=== PATIENT | male | born 1965 | race Caucasian/White ===

== ENCOUNTER 2022-08-17 07:55 | Outpatient (CLI) | payer BC, SELFPAY ==
[2022-08-17 14:16] LABS: Cholesterol* 227 mg/dL (90-199)
[2022-08-17 14:17] LABS: HDL Cholesterol* 40 mg/dL (>=40); LDL Cholesterol Calculated 117 mg/dL (<100); Triglycerides* 349 mg/dL (40-149)
== END 2022-08-17 07:56 | disposition home or self-care (01) ==
LOC: LKVREF 07:56
PROVIDERS: PCP Family Medicine; Visit Provider Family Medicine
DX: Z00.00 Encounter for general adult medical examination without abnormal findings (principal); E11.9 Type 2 diabetes mellitus without complications; Z13.6 Encounter for screening for cardiovascular disorders
CPT/HCPCS: 80061

== ENCOUNTER 2022-12-30 15:50 | Outpatient (CLI) | payer OTHER, SELFPAY | END 2022-12-30 15:51 | disposition home or self-care (01) | PROVIDERS: PCP Family Medicine; Visit Provider Family Medicine | DX: Z00.00 Encounter for general adult medical examination without abnormal findings (principal); Z01.818 Encounter for other preprocedural examination; E11.9 Type 2 diabetes mellitus without complications; R10.9 Unspecified abdominal pain | CPT/HCPCS: 80053 ==

== ENCOUNTER 2023-01-07 15:52 | Outpatient (CLI) | payer OTHER, SELFPAY ==
--- NOTE | 2023-01-07 16:00 | CRLHL7_ITS ---
For Patients: As a result of the Century Cures Act, medical imaging exams and procedure reports are released immediately into your electronic medical record. You may view this report before your referring provider. If you have questions, please contact your health care provider. Indication: abdominal pain, distension, ? mass LUQ Technique: Noncontrast CT abdomen and pelvis Please note that all CT scans at this facility use dose modulation, iterative reconstruction, and/or weight-based dosing when appropriate to reduce radiation dose to as low as reasonably achievable. Comparison: None Findings: 3.9 millimeter pulmonary nodule right middle lobe, series 6, image 2. No pleural effusion. No free air within the abdomen. Mild hepatic steatosis. Gallbladder is incompletely distended. No biliary obstruction. Spleen normal. Normal pancreas. Mildly prominent retroperitoneal lymph nodes are present in the upper abdomen measuring up to 1 cm. Atherosclerotic disease within the aorta without aneurysm. Adrenal glands, kidneys and ureters are normal. No bowel obstruction or free fluid. No abscess. Prostate calcifications. Normal appendix. No diverticulitis. No abdominal wall hernia. Bladder normal. No compression fracture. Degenerative changes of both hips. Impression: Mildly prominent upper abdominal retroperitoneal lymph nodes, nonspecific. Mild hepatic steatosis. 3.9 millimeter right middle lobe pulmonary nodule. Optional follow-up chest CT in 1 year suggested. No mass in the left upper quadrant. Please note that all CT scans at this facility use dose modulation, iterative reconstruction, and/or weight-based dosing when appropriate to reduce radiation dose to as low as reasonably achievable. Dictated by João Wayne MD @ 01/10/2023 11:37:59 AM (Electronically Signed)
== END 2023-01-07 15:53 | disposition home or self-care (01) ==
PROVIDERS: PCP Family Medicine; Visit Provider Family Medicine
DX: R10.9 Unspecified abdominal pain (principal); K76.0 Fatty (change of) liver, not elsewhere classified; R91.1 Solitary pulmonary nodule
CPT/HCPCS: 74176

== ENCOUNTER 2023-10-31 08:30 | Outpatient (CLI) | payer OTHER, SELFPAY | END 2023-10-31 08:31 | disposition home or self-care (01) | LOC: NFLDREF 11-01 07:16 | PROVIDERS: PCP Family Medicine; Referring Provider Family Medicine; Visit Provider Family Medicine | DX: E11.9 Type 2 diabetes mellitus without complications (principal); Z13.6 Encounter for screening for cardiovascular disorders; Z12.5 Encounter for screening for malignant neoplasm of prostate | CPT/HCPCS: 80048; 80061; 82043; 82570; G0103 ==

== ENCOUNTER 2025-03-05 07:56 | Outpatient (CLI) | payer OTHER, SELFPAY | END 2025-03-05 07:57 | disposition home or self-care (01) | LOC: NFLDREF 03-12 07:12 | PROVIDERS: PCP Family Medicine; Referring Provider Family Medicine; Visit Provider Family Medicine | DX: E11.9 Type 2 diabetes mellitus without complications (principal); D72.829 Elevated white blood cell count, unspecified; Z79.84 Long term (current) use of oral hypoglycemic drugs | CPT/HCPCS: 80053; 80061; 82043; 82570 ==

== ENCOUNTER 2025-03-12 08:03 | Outpatient (CLI) | payer OTHER, SELFPAY | END 2025-03-12 08:04 | disposition home or self-care (01) | LOC: LKVREF 08:04 | PROVIDERS: PCP Family Medicine; Visit Provider Family Medicine | DX: Z12.5 Encounter for screening for malignant neoplasm of prostate (principal) | CPT/HCPCS: G0103 ==

== ENCOUNTER 2025-10-04 08:09 | Outpatient (CLI) | payer BC, SELFPAY | END 2025-10-04 08:10 | disposition home or self-care (01) | LOC: NFLDREF 10-07 11:26 | PROVIDERS: PCP Family Medicine; Referring Provider Family Medicine; Visit Provider Family Medicine | DX: E11.9 Type 2 diabetes mellitus without complications (principal) | CPT/HCPCS: 80048 ==